=== PATIENT | female | born 1950 | race Caucasian/White ===

== ENCOUNTER 2020-11-15 19:12 | Inpatient (IN) | payer MEDICARE ==
[2020-11-15] MEDS ORDERED: ASPIRIN 81 MG PO STA (19:15)
[2020-11-15 19:34] LABS: Basophils # (A) 0.1 k/uL (0-0.2); Basophils % (A) 1 %; Eosinophils # (A) 0.3 k/uL (0-0.7); Eosinophils % (A) 3 %; HCT 40.8 % (34.0-46.0); HGB 13.7 gm/dL (11.4-16.0); Lymphocytes # (A) 2.1 k/uL (1.0-4.8); Lymphocytes % (A) 21 %; MCH 28.3 pg (25.0-35.0); MCHC 33.6 g/dL (31.0-37.0); MCV 84.3 fL (80.0-100.0); Mean Platelet Volume 9.1; Monocytes # (A) 0.5 k/uL (0-1.0); Monocytes % (A) 5 %; Neutrophils # (A) 6.9 k/uL (1.3-7.7); Neutrophils % (A) 69 %; Platelet Count 279 k/uL (150-450); RBC 4.84 m/uL (3.80-5.40); RDW 14.1 % (11.5-15.5)
[2020-11-15 19:43] LABS: ALT 34 U/L (4-34); AST 98 U/L (14-36); African American GFR (CKD) >90 (>60 ml/min/1.73 sqM); Albumin 5.2 g/dL (3.5-5.0); Alkaline Phosphatase 117 U/L (38-126); Anion Gap 12 mmol/L; Blood Urea Nitrogen 14 mg/dL (7-17); Calcium 10.2 mg/dL (8.4-10.2); Carbon Dioxide 23 mmol/L (22-30); Chloride 102 mmol/L (98-107); Glucose 196 mg/dL (74-99); Magnesium 1.6 mg/dL (1.6-2.3); Non-African American GFR(CKD) >90 (>60 ml/min/1.73 sqM); Sodium 137 mmol/L (137-145); Total Bilirubin 2.1 mg/dL (0.2-1.3); Total Protein 8.6 g/dL (6.3-8.2)
[2020-11-15 19:50] LABS: Potassium 5.9 mmol/L (3.5-5.1)
--- NOTE | 2020-11-15 19:55 | XR ---
EXAMINATION TYPE: XR chest 1V portable DATE OF EXAM: 11/15/2020 COMPARISON: Correlation made with CT report from 04/20/2016 HISTORY: Chest pain TECHNIQUE: Single frontal view of the chest is obtained. FINDINGS: There is no focal air space opacity, pleural effusion, or pneumothorax seen. The cardiac silhouette size is within normal limits. The osseous structures are intact. IMPRESSION: No acute process.
[2020-11-15] MEDS ORDERED: MAG HYDROX/AL HYDROX/SIMETH 30 ML CUP PO PRN (20:08)
[2020-11-15] MEDS ORDERED: ONDANSETRON 4 MG/2 ML VIAL IVP PRN (20:08)
[2020-11-15] MEDS ORDERED: TEMAZEPAM 15 MG CAP PO PRN (20:08)
[2020-11-15] MEDS ORDERED: NALOXONE 0.4 MG/ML 1 ML VIAL IV PRN (20:08)
[2020-11-15] MEDS ORDERED: MORPHINE SULFATE 4 MG/ML SYRINGE IV PRN (20:08)
--- NOTE | 2020-11-15 20:08 | ED ---
Chest Pain HPI - General Chief Complaint: Chest Pain Stated Complaint: Chest Pain Time Seen by Provider: 11/15/20 19:14 Source: patient, EMS Mode of arrival: EMS Limitations: no limitations - History of Present Illness Initial Comments: Patient complains of chest pain. She describes it is an elephant sitting on her chest. She has no shortness of breath. She has no palpitations. She has no nausea or vomiting. She has no diaphoresis. Her symptoms began 2 hours ago. She wasn't doing anything in the time. She has no swelling in the arms or legs. She has never had a heart attack. She has no stents in her heart. - Related Data Home Medications Medication Instructions Recorded Confirmed Linagliptin [Tradjenta] 5 mg PO DAILY 04/20/16 04/20/16 Losartan [Cozaar] 50 mg PO DAILY 04/20/16 04/20/16 Omeprazole [PriLOSEC] 20 mg PO AC-[id number] 04/20/16 04/20/16 metFORMIN HCL 1,000 mg PO BID 04/20/16 04/20/16 Allergies Allergy/AdvReac Type Severity Reaction Status Date / Time amlodipine besylate Allergy Nausea & Verified 04/20/16 01:50 [From Norvasc] Vomiting morphine AdvReac Unknown Verified 11/15/20 19:26 Review of Systems ROS Statement: Those systems with pertinent positive or pertinent negative responses have been documented in the HPI. ROS Other: All systems not noted in ROS Statement are negative. EKG Findings - EKG Comments: EKG Findings:: Twelve-lead EKG shows ventricular rate 61 bpm, normal NV interval and QRS complexes, no ST elevation or depression, interpreted by me as normal sinus rhythm. Past Medical History Past Medical History: Diabetes Mellitus, Hypertension Additional Past Medical History / Comment(s): toximoto 2019 History of Any Multi-Drug Resistant Organisms: None Reported Past Surgical History: Heart Catheterization Past Psychological History: No Psychological Hx Reported Smoking Status: Never smoker Past Alcohol Use History: Occasional Past Drug Use History: None Reported General Exam Limitations: no limitations Course Vital Signs 11/15/20 19:17 Temperature 97.7 F Pulse Rate 64 Respiratory 16 Rate Blood Pressure 127/75 O2 Sat by Pulse 97 Oximetry Chest Pain MDM - Core Measures AMI Core Measures Followed: Yes - MDM Patient complains of chest pain. I'm concern for ACS. I will consult cardiology. Patient will be admitted to the hospital. Disposition Clinical Impression: Chest pain Disposition: ADMITTED IP TO THIS HOSP Condition: Fair Referrals: Srinivasan Grimes DO [Primary Care Provider] - 1-2 days
[2020-11-15 20:20] LABS: INR 1.1 (<1.2); Partial Thromboplastin Time 24.6 sec (22.0-30.0); Prothrombin Time 11.2 sec (9.0-12.0)
[2020-11-15 20:29] LABS: Appearance,Urine Cloudy (Clear); Bacteria,Urine Rare /hpf; Bilirubin,Urine Negative (Negative); Blood,Urine Small (Negative); Calcium Oxalate Crystals,Urine Few /hpf; Color,Urine Yellow; Glucose,Urine (UA) Trace (Negative); Hyaline Casts,Urine 15 /lpf (0-2); Ketones,Urine Trace (Negative); Leukocyte Esterase,Urine Small (Negative); Mucus,Urine Moderate /hpf; Nitrite,Urine Negative (Negative); PH, Urine 5.5 (5.0-8.0); Protein,Urine 2+ (Negative); RBC,Urine 5 /hpf (0-5); Squamous Epithelial Cell,Urine 6 /hpf (0-4); WBC,Urine 5 /hpf (0-5)
[2020-11-15] MEDS ORDERED: metFORMIN 500 MG TAB PO SCH (21:00)
[2020-11-15] MEDS: HYDROcodone/APAP 5-325MG 1 EACH TAB PO PRN (21:44)
--- NOTE | 2020-11-15 23:05 | P.HPIM ---
History of Present Illness H&P Date: 11/15/20 Patient is a 70-year-old female with a PMH of hypertension and type II DM who presented to the emergency room with complaints of chest discomfort. The patient reports that she was in her usual state of health until about 5:30 PM tonight when she was sitting and talking to her on the phone when she suddenly developed a pressure-like substernal discomfort. The discomfort is non-radiating, 9 out of 10, with associated shortness of breath. She denied palpitations, nausea, vomiting, or diaphoresis. The patient's daughter subsequently activated EMS. In route to the hospital, EMS gave the patient sublingual nitroglycerin with which the patient felt as though she was going to faint but never lost consciousness. She reports some improvement in her pain with the nitroglycerin. At time of interview, she reports that her substernal pain has improved to a 5 out of 10 and she no longer has shortness of breath or any additional complaints. Denies tearing-like nature of the pain. The pain is nonpleuritic, with no alleviating or exacerbating features. Denied cough, fever, chills. Denied headaches, abdominal pain, or diarrhea. Denied leg pain or leg swelling. Denied recent travel. She underwent an extensive evaluation in the emergency room with an EKG showing normal sinus rhythm with LVH at 61 bpm along with T-wave inversion in lead V1 and T-wave flattening in lead V2. Chest x-ray was unremarkable. Laboratory evaluation was remarkable for a total bilirubin of 2.1, AST 98, and potassium 5.9 on a hemolyzed specimen. Review of Systems Pertinent positives and negatives as discussed in HPI, a complete review of systems was performed and all other systems are negative. Past Medical History Past Medical History: Diabetes Mellitus, Hypertension Additional Past Medical History / Comment(s): toximoto 2019 History of Any Multi-Drug Resistant Organisms: None Reported Past Surgical History: Heart Catheterization Past Psychological History: No Psychological Hx Reported Smoking Status: Never smoker Past Alcohol Use History: Occasional Past Drug Use History: None Reported Medications and Allergies Home Medications Medication Instructions Recorded Confirmed Type Linagliptin [Tradjenta] 5 mg PO DAILY 04/20/16 11/15/20 History Bimatoprost [Lumigan .01% Ophth 1 drop BOTH EYES HS 11/15/20 11/15/20 History Soln] Halobetasol Propionate [Ultravate] 1 applic TOPICAL DAILY PRN 11/15/20 11/15/20 History Losartan [Cozaar] 25 mg PO DAILY 11/15/20 11/15/20 History Omeprazole 40 mg PO DAILY 11/15/20 11/15/20 History carvediloL [Coreg] 3.125 mg PO BID 11/15/20 11/15/20 History metFORMIN HCL [Glucophage] 1,000 mg PO DAILY 11/15/20 11/15/20 History metFORMIN HCL [Glucophage] 1,500 mg PO HS 11/15/20 11/15/20 History Allergies Allergy/AdvReac Type Severity Reaction Status Date / Time amlodipine besylate AdvReac Cough Verified 11/15/20 20:36 [From [facility]] morphine AdvReac Passes out Verified 11/15/20 20:36 Physical Exam Vitals: Vital Signs Temp Pulse Resp BP Pulse Ox 11/15/20 19:17 97.7 F 64 16 127/75 97 Intake and Output 11/15/20 11/15/20 11/15/20 06:59 14:59 22:59 Other: Weight 90.265 kg General: non toxic, no distress, appears at stated age, overweight Derm: no unusual rashes/lesions no unusual ecchymoses, warm, dry Head: atraumatic, normocephalic, symmetric Eyes: EOMI, no lid lag, anicteric sclera, pupils equal round reactive to light ENT: Nose and ears atraumatic, no thrush, no pharyngeal erythema Neck: No thyromegaly, no cervical lymphadenopathy, trachea midline, supple Mouth: no lip lesion, mucus membranes moist Cardiovascular: S1S2 reg, no murmur, positive posterior tibial pulse bilateral, no edema, capillary refill less than 2 seconds, substernal tenderness to palpation with pain reproducible Lungs: CTA bilateral, no rhonchi, no rales , no accessory muscle use Abdominal: soft, nontender to palpation, no guarding, no appreciable organomegaly, normal bowel sounds Ext: no gross muscle atrophy, muscle strength 5 out of 5 in all 4 extremities grossly, no contractures Neuro: CN II-XI grossly intact, light touch intact all 4 extremities, finger to nose within normal limits Psych: Alert, oriented, appropriate affect Results CBC & Chem 7: 11/16/20 01:29 11/15/20 19:27 Labs: Abnormal Lab Results - Last 24 Hours (Table) 11/15/20 11/15/20 Range/Units 19:27 19:50 Potassium 5.9 H (3.5-5.1) mmol/L Glucose 196 H (74-99) mg/dL Total Bilirubin 2.1 H (0.2-1.3) mg/dL AST 98 H (14-36) U/L Total Protein 8.6 H (6.3-8.2) g/dL Albumin 5.2 H (3.5-5.0) g/dL Urine Appearance Cloudy H (Clear) Urine Protein 2+ H (Negative) Urine Glucose (UA) Trace H (Negative) Urine Ketones Trace H (Negative) Urine Blood Small H (Negative) Ur Leukocyte Esterase Small H (Negative) Ur Squamous Epith Cells 6 H (0-4) /hpf Calcium Oxalate Crystal Few H (None) /hpf Urine Bacteria Rare H (None) /hpf Hyaline Casts 15 H (0-2) /lpf Urine Mucus Moderate H (None) /hpf Assessment and Plan Plan: Chest pain with atypical features, rule out ACS -Cardiology consulted -Cardiac monitoring -Trend troponin -Continue aspirin Chronic conditions: Type II DM, hypertension -Continue home medications -Lispro insulin sliding scale blood glucose monitoring -Hold oral hypoglycemics -Check A1c DVT prophylaxis -Heparin subq The patient is admitted with an anticipated less than 2 midnight stay for evaluation of chest pain CODE STATUS: Full Code Discussed with: Patient Anticipated discharge date: in am Anticipated discharge place: home A total of 35 minutes was spent on the care of this complex patient more than 50% of the time was spent in counseling and care coordination.
[2020-11-15] MEDS ORDERED: HEPARIN SODIUM,PORCINE 5,000 UNIT/ML 1 ML VIAL IV ONE (23:29)
[2020-11-15] MEDS ORDERED: HEPARIN SODIUM,PORCINE 5,000 UNIT/ML 1 ML VIAL IV PRN (23:29)
[2020-11-15] MEDS ORDERED: HEPARIN SOD,PORK IN 0.45% NACL 25,000 UNIT in 0.45% NACL 1 250ML.BAG IV SCH (23:30)
[2020-11-16] MEDS ORDERED: HEPARIN SODIUM,PORCINE 5,000 UNIT/ML 1 ML VIAL SQ SCH
[2020-11-16 02:12] LABS: Basophils # (A) 0.1 k/uL (0-0.2); Basophils % (A) 1 %; Eosinophils # (A) 0.1 k/uL (0-0.7); Eosinophils % (A) 1 %; HCT 39.7 % (34.0-46.0); HGB 13.5 gm/dL (11.4-16.0); Lymphocytes # (A) 1.7 k/uL (1.0-4.8); Lymphocytes % (A) 16 %; MCH 28.8 pg (25.0-35.0); MCV 84.6 fL (80.0-100.0); Mean Platelet Volume 6.9; Monocytes # (A) 0.5 k/uL (0-1.0); Monocytes % (A) 4 %; Neutrophils # (A) 8.2 k/uL (1.3-7.7); Neutrophils % (A) 78 %; Platelet Count 184 k/uL (150-450); RBC 4.69 m/uL (3.80-5.40); WBC 10.5 k/uL (3.8-10.6)
[2020-11-16 02:13] LABS: INR 1.1 (<1.2); Partial Thromboplastin Time 51.8 sec (22.0-30.0); Prothrombin Time 11.6 sec (9.0-12.0)
[2020-11-16] MEDS: HYDROcodone/APAP 5-325MG 1 EACH TAB PO PRN (02:33)
[2020-11-16] MEDS ORDERED: CLOPIDOGREL 75 MG TAB PO STA (03:38)
[2020-11-16] MEDS ORDERED: PROCHLORPERAZINE INJ 10 MG/2 ML VIAL IVP STA (03:47)
[2020-11-16 05:21] LABS: Glucose,Whole Blood 204 mg/dL (75-99)
[2020-11-16] MEDS: INSULIN ASPART (NovoLOG) 100 UNIT/ML VIAL SQ SCH ×4 (05:25→20:33)
[2020-11-16] MEDS: PANTOPRAZOLE 40 MG TABLET PO SCH (05:25)
[2020-11-16 05:56] LABS: Basophils # (A) 0.1 k/uL (0-0.2); Basophils % (A) 1 %; Eosinophils # (A) 0.1 k/uL (0-0.7); Eosinophils % (A) 1 %; HCT 39.3 % (34.0-46.0); HGB 13.5 gm/dL (11.4-16.0); Lymphocytes # (A) 1.2 k/uL (1.0-4.8); Lymphocytes % (A) 13 %; MCH 29.1 pg (25.0-35.0); MCHC 34.5 g/dL (31.0-37.0); MCV 84.4 fL (80.0-100.0); Mean Platelet Volume 7.1; Monocytes # (A) 0.3 k/uL (0-1.0); Monocytes % (A) 4 %; Neutrophils # (A) 7.1 k/uL (1.3-7.7); Neutrophils % (A) 80 %; Platelet Count 165 k/uL (150-450); RBC 4.65 m/uL (3.80-5.40); RDW 13.9 % (11.5-15.5); WBC 8.8 k/uL (3.8-10.6)
[2020-11-16 06:34] LABS: ALT 27 U/L (4-34); AST 65 U/L (14-36); African American GFR (CKD) >90 (>60 ml/min/1.73 sqM); Albumin/Globulin Ratio 1.5; Alkaline Phosphatase 110 U/L (38-126); Anion Gap 8 mmol/L; Blood Urea Nitrogen 12 mg/dL (7-17); Calcium 9.7 mg/dL (8.4-10.2); Carbon Dioxide 25 mmol/L (22-30); Chloride 101 mmol/L (98-107); Globulin 2.6 g/dL; Glucose 209 mg/dL (74-99); Non-African American GFR(CKD) >90 (>60 ml/min/1.73 sqM); Potassium 3.9 mmol/L (3.5-5.1); Sodium 134 mmol/L (137-145); Total Bilirubin 0.6 mg/dL (0.2-1.3); Total Protein 6.6 g/dL (6.3-8.2)
[2020-11-16 06:49] LABS: Glucose,Whole Blood 199 mg/dL (75-99)
[2020-11-16] MEDS ORDERED: ASPIRIN 81 MG PO STA (06:58)
[2020-11-16] MEDS ORDERED: SODIUM CHLORIDE 0.9% 1,000 ML IV SCH ×2 (07:00→08:45)
[2020-11-16] MEDS ORDERED: METOPROLOL TARTRATE 25 MG TAB PO STA (07:00)
[2020-11-16] MEDS ORDERED: SODIUM CHLORIDE 0.9% 1,000 ML in EMPTY BAG 1 BAG IV ONE (07:07)
[2020-11-16] MEDS ORDERED: ATORVASTATIN 80 MG TAB PO STA (07:07)
[2020-11-16] MEDS ORDERED: ASPIRIN 325 MG TAB PO STA (07:07)
[2020-11-16] MEDS ORDERED: NITROGLYCERIN SL TABS 0.4 MG TAB SUBLINGUAL PRN (07:07)
[2020-11-16] MEDS ORDERED: IV FLUID CONTINUATION 1,000 ML IV ONE (07:25)
[2020-11-16] MEDS ORDERED: VERAPAMIL 2.5 MG/ML 2 ML AMP ONE (07:31)
[2020-11-16] MEDS ORDERED: LIDOCAINE 1% INJ 10MG/ML (20 ML MDV) ONE (07:31)
[2020-11-16] MEDS: MIDAZOLAM 2 MG/2 ML VIAL IV ONE ×2 (07:33→07:48)
[2020-11-16] MEDS ORDERED: HEPARIN SODIUM 1,000 UN/ML (10ML VL) ONE (07:33)
[2020-11-16] MEDS ORDERED: LIDOCAINE 1% INJ 10MG/ML (20 ML MDV) SQ ONE (07:34)
[2020-11-16] MEDS: VERAPAMIL SYRINGE (5 MG/10 ML) INTRAARTER ONE ×2 (07:36→07:52)
[2020-11-16] MEDS ORDERED: fentaNYL (PF) 50 MCG/ML 2 ML AMP ONE (07:39)
[2020-11-16] MEDS ORDERED: IOPAMIDOL-370 100ML BTL INJ ONE (07:53)
--- NOTE | 2020-11-16 08:28 | CONS ---
CONSULTATION This is a 70-year-old lady, a patient who has a primary health care in [facility] and cardiology care at [facility]. She came into the hospital because at 5:30 while she was at home at her daughter's home talking to her daughter and she developed chest pain. After arrival, she had mild ST-segment abnormality in the precordial leads. She also had normal troponins. Subsequently, she had more pain and the troponin went up to 3.6. She is here in the ICU after I requested a transfer to ICU from the ER. This lady actually was in the emergency room and I got a phone call about 3:30 or 4 o'clock that she was having some chest discomfort. The troponin had gone up to 3.4, and I recommended that we transfer her to the ICU with beta blockers and also sublingual nitroglycerin. This morning she is more comfortable, resting, but troponin is high. EKG revealed a sinus mechanism with the ST depression in leads V4 to V6. Her BUN and creatinine are normal. She is more comfortable. She does have a history of type 2 diabetes on oral agents, hypertension, and hyperlipidemia. She has had a stressful situation 2 years ago and had what seems to be a stress cardiomyopathy by cardiac cath according to the patient, the details were not verified. At the time of my evaluation, she is resting comfortably without symptoms. PAST MEDICAL HISTORY: 1. Type 2 diabetes. 2. Hypertension. 3. Hyperlipidemia. 4. History of stress cardiomyopathy 2 years ago. MEDICATIONS: Medication at home include Coreg, losartan, Tradjenta, metformin and Livalo for her cholesterol. ALLERGIES: She is allergic to MORPHINE and also there is some questionable allergy to AMLODIPINE as well. PHYSICAL EXAMINATION: On examination, blood pressure is 150/64, pulse rate is about 88. HEENT: Unremarkable. Fundus was not examined by me. NECK: Supple. No JVD. No carotid bruit. Heart exam reveals S1, S2 heard normally. No rub, murmur or gallop. Lungs are clear. Abdomen is soft, nontender. Lower extremities reveal normal pulses. No edema. Central nervous system is normal. EKG revealed sinus mechanism with precordial ST depression in leads V4 to V6. IMPRESSION: 1. Acute non-ST elevation myocardial infarction with EKG changes and troponin elevation. 2. History of stress cardiomyopathy. 3. Type 2 diabetes. 4. Hypertension. 5. Hyperlipidemia. RECOMMENDATIONS: I am recommending coronary angiography, based on findings intervention. The rationale, risks, benefits, options were explained. Patient understands all details and wishes to proceed with the procedure. MMODL / IJN: [id number] /
[2020-11-16] MEDS ORDERED: ASPIRIN 325 MG TAB PO SCH (09:00)
[2020-11-16] MEDS ORDERED: LINAGLIPTIN 5 MG TABLET PO SCH (09:00)
[2020-11-16] MEDS ORDERED: LOSARTAN 50 MG TAB PO SCH (09:00)
[2020-11-16] MEDS: LOSARTAN 50 MG TAB PO SCH (09:15)
[2020-11-16] MEDS: LINAGLIPTIN 5 MG TABLET PO SCH (09:16)
--- NOTE | 2020-11-16 09:20 | CC ---
CARDIAC CATHETERIZATION REPORT DATE OF SERVICE: 11/16/2020 PROCEDURE: Left heart catheterization and coronary angiography. PERFORMED BY: Dr. Kristyn Isaac. Moderate conscious sedation time was 22 minutes. Patient was administered Versed. Oxygen saturation, hemodynamics and EKG were monitored closely. CLINICAL INFORMATION: Mrs. Oanh Ivan is a 70-year-old lady with a history of type 2 diabetes, hypertension, hyperlipidemia, and 2 years ago had an episode of stress cardiomyopathy. She presented to the hospital last night with chest pain, had troponin elevation up to 3.4 with EKG changes. After stabilizing her, I advised coronary angiography after due discussion regarding risks, benefits, and options. PROCEDURE NOTE: Under local anesthesia and strict aseptic precautions, a 6-Welsh introducer was placed in the right radial artery. Using a JL3.5 and JR4 catheters, I performed coronary angiography and the same right catheter was used to check LV pressures. LV gram was not performed. The sheath was taken out and TR band applied as per protocol. The saturation of the fingers of the right hand was 95%. The patient was on heparin until about 45 minutes before the procedure and therefore I did not give heparin during the procedure. CARDIAC CATHETERIZATION FINDINGS: The left ventricular end-diastolic pressure was 24 mmHg without any gradient across the aortic valve. CORONARY ANGIOGRAPHY FINDINGS: RIGHT CORONARY ARTERY: This is a large dominant vessel, tortuous and distally gives off a small PLV, large PDA and supplies a sizable amount of myocardium. The PDA in its midportion has about a 40% to 45% blockage best seen in the HINES projection. The midportion of the PDA has about a 45% blockage. LEFT MAIN CORONARY ARTERY: This is a short patent disease-free vessel that bifurcates into LAD and circumflex. LEFT ANTERIOR DESCENDING CORONARY ARTERY: Good caliber vessel extends along the anterior wall, gives off a small diagonal proximally and a large diagonal in the midportion. After the diagonal, it gives off septal branch and after the septal branch, there is an area of haziness, but the stenosis is no more than 35% and there is excellent FLAVIA-3 flow. There is a 35% mid LAD narrowing noted, which I do not believe is a significant or the culprit lesion. The flow is brisk. LEFT POSTERIOR CIRCUMFLEX CORONARY ARTERY: Technically nondominant, but large caliber, large distribution vessel that gives off a large obtuse marginal proximally and continues distally. The posterolateral branch gives off an AV groove branch. The circumflex has only minor irregularities. No significant disease. This is a large caliber system and a large distribution system. LEFT VENTRICULOGRAM: Left ventriculogram was not performed. FINAL IMPRESSION: This patient has elevated filling pressures, no gradient across the aortic valve. She has a right dominant system with a 45% mid PDA lesion of the right coronary artery branch. Left main and circumflex which is nondominant but good distribution is free of significant disease. Left main has no significant disease. Left anterior descending coronary artery in the midportion has a 35% narrowing after the diagonal branch. The rest of the LAD is free of significant disease. Left ventriculogram was not performed. RECOMMENDATIONS: Findings were discussed with the patient as well as her . I am recommending continued medical therapy with losartan, beta josh, subcu heparin, aspirin and Plavix. I will obtain an echocardiogram today. I am assuming that this may be a stress cardiomyopathy as well. I explained this to the patient and her . I expect she will be discharged in next 48 hours if she remains stable. MMODL / IJN: [id number] /
--- NOTE | 2020-11-16 09:37 | P.PN ---
Subjective Progress Note Date: 11/16/20 Principal diagnosis: Non-ST elevation AK Patient is doing well today. She underwent left heart catheterization through right wrist approach this morning showing no significant coronary artery disease. Patient denies any chest pain. She reported having a lot of family stress recently with her daughter that she did not go into specific details. Objective - Vital Signs Vital signs: Vital Signs Temp 98.2 F 11/16/20 05:00 Pulse 83 11/16/20 07:00 Resp 20 11/16/20 07:00 BP 164/94 11/16/20 07:00 Pulse Ox 95 11/16/20 07:00 Intake & Output 11/15/20 11/16/20 11/16/20 18:59 06:59 18:59 Intake Total 65.697 108.003 Output Total 700 300 Balance -634.303 -191.997 Weight 93.8 kg Intake: IV 100 Intake, IV Titration 65.697 8.003 Amount Heparin Sod,Pork in 0.45% 65.697 8.003 NaCl 25,000 unit In 0.45 % NaCl 1 250ml.bag @ 11 UNITS/KG/HR 9.929 mls/hr IV .Q24H RANDY Rx#: [id number] Output: Urine 700 300 Other: # Voids 1 - Exam General: The patient is awake and alert, in no distress Eye: there is normal conjunctiva bilaterally. Neck: The neck is supple, there is no JVD. Cardiovascular: Normal S1-S2, no S3-S4, no murmurs. Respiratory: Lungs clear to auscultation bilaterally Gastrointestinal: Abdomen is soft, nontender Musculoskeletal: There is no pedal edema. Neurological:. Speech is normal. Skin: Skin is warm and dry - Labs CBC & Chem 7: 11/16/20 05:19 11/16/20 05:19 Labs: Abnormal Lab Results - Last 24 Hours (Table) 11/15/20 11/15/20 11/15/20 Range/Units 19:27 19:50 22:23 Neutrophils # (1.3-7.7) k/uL APTT (22.0-30.0) sec Sodium (137-145) mmol/L Potassium 5.9 H (3.5-5.1) mmol/L Glucose 196 H (74-99) mg/dL POC Glucose (mg/dL) (75-99) mg/dL Total Bilirubin 2.1 H (0.2-1.3) mg/dL AST 98 H (14-36) U/L Troponin I 0.752 H* (0.000-0.034) ng/mL Total Protein 8.6 H (6.3-8.2) g/dL Albumin 5.2 H (3.5-5.0) g/dL Urine Appearance Cloudy H (Clear) Urine Protein 2+ H (Negative) Urine Glucose (UA) Trace H (Negative) Urine Ketones Trace H (Negative) Urine Blood Small H (Negative) Ur Leukocyte Esterase Small H (Negative) Ur Squamous Epith Cells 6 H (0-4) /hpf Calcium Oxalate Crystal Few H (None) /hpf Urine Bacteria Rare H (None) /hpf Hyaline Casts 15 H (0-2) /lpf Urine Mucus Moderate H (None) /hpf 11/16/20 11/16/20 11/16/20 Range/Units 01:29 01:29 01:29 Neutrophils # 8.2 H (1.3-7.7) k/uL APTT 51.8 H (22.0-30.0) sec Sodium (137-145) mmol/L Potassium (3.5-5.1) mmol/L Glucose (74-99) mg/dL POC Glucose (mg/dL) (75-99) mg/dL Total Bilirubin (0.2-1.3) mg/dL AST (14-36) U/L Troponin I 3.490 H* (0.000-0.034) ng/mL Total Protein (6.3-8.2) g/dL Albumin (3.5-5.0) g/dL Urine Appearance (Clear) Urine Protein (Negative) Urine Glucose (UA) (Negative) Urine Ketones (Negative) Urine Blood (Negative) Ur Leukocyte Esterase (Negative) Ur Squamous Epith Cells (0-4) /hpf Calcium Oxalate Crystal (None) /hpf Urine Bacteria (None) /hpf Hyaline Casts (0-2) /lpf Urine Mucus (None) /hpf 11/16/20 11/16/20 11/16/20 Range/Units 05:19 05:19 05:20 Neutrophils # (1.3-7.7) k/uL APTT 33.6 H (22.0-30.0) sec Sodium 134 L (137-145) mmol/L Potassium (3.5-5.1) mmol/L Glucose 209 H (74-99) mg/dL POC Glucose (mg/dL) 204 H (75-99) mg/dL Total Bilirubin (0.2-1.3) mg/dL AST 65 H (14-36) U/L Troponin I (0.000-0.034) ng/mL Total Protein (6.3-8.2) g/dL Albumin (3.5-5.0) g/dL Urine Appearance (Clear) Urine Protein (Negative) Urine Glucose (UA) (Negative) Urine Ketones (Negative) Urine Blood (Negative) Ur Leukocyte Esterase (Negative) Ur Squamous Epith Cells (0-4) /hpf Calcium Oxalate Crystal (None) /hpf Urine Bacteria (None) /hpf Hyaline Casts (0-2) /lpf Urine Mucus (None) /hpf 11/16/20 Range/Units 06:47 Neutrophils # (1.3-7.7) k/uL APTT (22.0-30.0) sec Sodium (137-145) mmol/L Potassium (3.5-5.1) mmol/L Glucose (74-99) mg/dL POC Glucose (mg/dL) 199 H (75-99) mg/dL Total Bilirubin (0.2-1.3) mg/dL AST (14-36) U/L Troponin I (0.000-0.034) ng/mL Total Protein (6.3-8.2) g/dL Albumin (3.5-5.0) g/dL Urine Appearance (Clear) Urine Protein (Negative) Urine Glucose (UA) (Negative) Urine Ketones (Negative) Urine Blood (Negative) Ur Leukocyte Esterase (Negative) Ur Squamous Epith Cells (0-4) /hpf Calcium Oxalate Crystal (None) /hpf Urine Bacteria (None) /hpf Hyaline Casts (0-2) /lpf Urine Mucus (None) /hpf Assessment and Plan Assessment: This is a 70-year-old female with past medical history noted below significant for essential hypertension and type 2 diabetes who presented to the emergency room with chest discomfort and pain. Patient was evaluated in the ER and admitt ed to the hospital for further management of her medical problems noted below. 1. Non-ST elevation AK: Seen and evaluated by cardiology. Started on IV heparin drip and optimal medical treatment. Underwent left heart catheterization showing no significant coronary artery disease. Recommendation to continue aggressive medical management. Echocardiogram pending 2. Essential hypertension: Blood pressure not well controlled. We will continue current regimen and monitor blood pressure closely 3. Hyperlipidemia started on Lipitor. Lipid panel pending. 4. Type 2 diabetes: Hold oral agents and continue sliding scale insulin Today, I reviewed her medication list and lab work results. Continue IV fluid hydration with normal saline at 75 mL per hour. Repeat lab work in the morning. Appreciate cardiology recommendations. Dual antiplatelet therapy with aspirin and Plavix.
--- NOTE | 2020-11-16 11:00 | ECHOF ---
Referral Reason:NSTEMI MEASUREMENTS -------- HEIGHT: 152.4 cm WEIGHT: 93.4 kg BP: RVIDd: 2.7 cm (< 3.3) IVSd: 1.1 cm (0.6 - 1.1) LVIDd: 3.8 cm (3.9 - 5.3) LVPWd: 1.2 cm (0.6 - 1.1) IVSs: 1.4 cm LVIDs: 2.8 cm LVPWs: 1.4 cm LAESV Index (A-L): 24.86 ml/m Ao Diam: 3.1 cm (2.0 - 3.7) AV Cusp: 1.7 cm (1.5 - 2.6) LA Diam: 4.1 cm (2.7 - 3.8) MV EXCURSION: 18.048 mm (> 18.000) MV EF SLOPE: 99 mm/s (70 - 150) EPSS: 0.4 cm MV E Stanley: 0.44 m/s MV DecT: 268 ms MV A Stanley: 0.77 m/s MV E/A Ratio: 0.58 RAP: 5.00 mmHg RVSP: 26.63 mmHg FINDINGS -------- Sinus rhythm. This was a technically adequate study. The left ventricular size is normal. There is mild concentric left ventricular hypertrophy. Overa ll left ventricular systolic function is moderate-severely impaired with, an EF between 30 - 35 %. Mid anterior LV wall motion is hypokinetic. Apical anterior LV wall motion is hypokinetic. Apic al lateral LV wall motion is hypokinetic. Apical inferior LV wall motion is hypokinetic. Apical septum LV wall motion is hypokinetic. [place]. The right ventricle is normal in size. Normal LA size by volume 22+/-6 ml/m2. The right atrial size is normal. The aortic valve is trileaflet, and appears structurally normal. No aortic stenosis or regurgitation. The mitral valve is normal. Mild mitral regurgitation is present. The tricuspid valve appears structurally normal. Mild tricuspid regurgitation present. Right vent ricular systolic pressure is normal at < 35 mmHg. There is no pulmonic regurgitation present. The aortic root size is normal. There is no pericardial effusion. CONCLUSIONS -------- 1. Overall left ventricular systolic function is moderate-severely impaired with, an EF between 30 - 35 %. 2. Mid anterior LV wall motion is hypokinetic. 3. Apical anterior LV wall motion is hypokinetic. 4. Apical lateral LV wall motion is hypokinetic. 5. Apical inferior LV wall motion is hypokinetic. 6. Apical septum LV wall motion is hypokinetic. 7. [place]. 8. Normal LA size by volume 22+/-6 ml/m2. 9. The aortic valve is trileaflet, and appears structurally normal. No aortic stenosis or regurgitati on. 10. Mild mitral regurgitation is present. 11. Mild tricuspid regurgitation present. 12. There is no pericardial effusion. DATABASE ADMINISTRATOR: Mariann Garrido RDCS
[2020-11-16 12:17] LABS: Glucose,Whole Blood 201 mg/dL (75-99)
[2020-11-16 16:38] LABS: Glucose,Whole Blood 161 mg/dL (75-99)
[2020-11-16] MEDS: HEPARIN SODIUM,PORCINE 5,000 UNIT/ML 1 ML VIAL SQ SCH ×2 (16:44→23:05)
[2020-11-16] MEDS: METOPROLOL TARTRATE 25 MG TAB PO SCH ×2 (16:44→20:33)
[2020-11-16 20:19] LABS: Glucose,Whole Blood 174 mg/dL (75-99)
[2020-11-16] MEDS ORDERED: METOPROLOL TARTRATE 25 MG TAB PO SCH (21:00)
[2020-11-16 23:36] VITALS: RESP 16
[2020-11-17 06:14] LABS: Glucose,Whole Blood 188 mg/dL (75-99)
[2020-11-17] MEDS: INSULIN ASPART (NovoLOG) 100 UNIT/ML VIAL SQ SCH (06:22)
[2020-11-17] MEDS: PANTOPRAZOLE 40 MG TABLET PO SCH (06:23)
[2020-11-17 07:19] LABS: Basophils # (A) 0.1 k/uL (0-0.2); Basophils % (A) 1 %; Eosinophils # (A) 0.1 k/uL (0-0.7); Eosinophils % (A) 2 %; HCT 41.8 % (34.0-46.0); Lymphocytes # (A) 0.9 k/uL (1.0-4.8); Lymphocytes % (A) 15 %; MCH 28.3 pg (25.0-35.0); MCHC 33.5 g/dL (31.0-37.0); MCV 84.3 fL (80.0-100.0); Mean Platelet Volume 6.9; Monocytes # (A) 0.3 k/uL (0-1.0); Monocytes % (A) 5 %; Neutrophils # (A) 4.9 k/uL (1.3-7.7); Neutrophils % (A) 77 %; Platelet Count 168 k/uL (150-450); RBC 4.96 m/uL (3.80-5.40); WBC 6.4 k/uL (3.8-10.6)
[2020-11-17 07:32] LABS: African American GFR (CKD) >90 (>60 ml/min/1.73 sqM); Anion Gap 9 mmol/L; Blood Urea Nitrogen 12 mg/dL (7-17); Calcium 10.2 mg/dL (8.4-10.2); Carbon Dioxide 25 mmol/L (22-30); Chloride 104 mmol/L (98-107); Cholesterol 157 mg/dL (<200); Glucose 175 mg/dL (74-99); HDL Cholesterol 38 mg/dL (40-60); LDL Cholesterol,Calculated 72 mg/dL (0-99); Magnesium 1.5 mg/dL (1.6-2.3); Non-African American GFR(CKD) >90 (>60 ml/min/1.73 sqM); Sodium 138 mmol/L (137-145); Triglycerides 234 mg/dL (<150)
[2020-11-17] MEDS ORDERED: CLOPIDOGREL 75 MG TAB PO SCH (09:00)
[2020-11-17] MEDS ORDERED: ATORVASTATIN 80 MG TAB PO SCH (09:00)
[2020-11-17] MEDS ORDERED: ASPIRIN 325 MG TAB PO SCH (09:00)
[2020-11-17] MEDS ORDERED: ATORVASTATIN 40 MG TAB PO SCH (09:00)
[2020-11-17] MEDS: HEPARIN SODIUM,PORCINE 5,000 UNIT/ML 1 ML VIAL SQ SCH (10:15)
[2020-11-17] MEDS: LOSARTAN 50 MG TAB PO SCH (10:15)
[2020-11-17] MEDS: METOPROLOL TARTRATE 25 MG TAB PO SCH (10:16)
[2020-11-17] MEDS: LINAGLIPTIN 5 MG TABLET PO SCH (10:16)
[2020-11-17 11:00] VITALS: BP 133/86; PULSE 96; TEMP 98.4
--- NOTE | 2020-11-17 11:36 | P.PN ---
Subjective Progress Note Date: 11/17/20 This is a 70-year-old female was admitted to the hospital with chest pain and abnormal troponin. Patient had a cardiac catheterization and was found not to have any significant obstructive disease. Echo Cardigan showed anterolateral hypokinesia consistent with apical ballooning syndrome. Ejection fraction is 35%. Patient had similar episode in the past. Apparently there is family issue resulting in stress. Today patient is stable, complains of any chest pain or shortness of breath. Lungs are clear. Heart is regular. Patient is going to be discharged home and will have follow-up with her own web production designer. If she wants, patient could be seen by Dr. CHRISTOPHER Isaac as an outpatient. A she may also benefit from anxiolytic therapy Objective - Vital Signs Vital signs: Vital Signs Temp 98.4 F 11/17/20 07:50 Pulse 96 11/17/20 07:50 Resp 16 11/17/20 07:50 BP 133/86 11/17/20 07:50 Pulse Ox 96 11/17/20 07:50 Intake & Output 11/16/20 11/17/20 11/17/20 18:59 06:59 18:59 Intake Total 708.003 75 240 Output Total 300 Balance 408.003 75 240 Weight 93.7 kg Intake: IV 700 75 Sodium Chloride 0.9% 1, 600 75 000 ml @ 75 mls/hr IV . [id number] RANDY Rx#:[id number] Intake, IV Titration 8.003 Amount Heparin Sod,Pork in 0.45% 8.003 NaCl 25,000 unit In 0.45 % NaCl 1 250ml.bag @ 11 UNITS/KG/HR 9.929 mls/hr IV .Q24H RANDY Rx#: [id number] Oral 240 Output: Urine 300 Other: Voiding Method Toilet Toilet Toilet # Voids 4 1 - Exam GENERAL EXAM: Patient is alert and oriented and doesn't appear to be in any acute distress HEENT: Normocephalic. Normal reaction of pupils, equal size, normal range of extraocular motion. No erythema or exudates in the throat. NECK: No masses, no nuchal rigidity. CHEST: No chest wall deformity. LUNGS: Equal air entry with no crackles or wheeze. HEART: S1 and S2 normal with no audible mumurs or gallops. Regular rhythm, femorals equal on both sides.. ABDOMEN: No hepatosplenomegaly, normal bowel sounds, no guarding or rigidity. SKIN: No rashes CENTRAL NERVOUS SYSTEM: No focal deficits. EXTREMITIES: No cyanosis, clubbing or edema. - Labs CBC & Chem 7: 11/17/20 06:45 11/17/20 06:45 Labs: Abnormal Lab Results - Last 24 Hours (Table) 11/16/20 11/16/20 11/16/20 Range/Units 05:19 12:15 16:36 Lymphocytes # (1.0-4.8) k/uL Glucose (74-99) mg/dL POC Glucose (mg/dL) 201 H 161 H (75-99) mg/dL Hemoglobin A1c 7.2 H (4.0-6.0) % Magnesium (1.6-2.3) mg/dL Triglycerides (<150) mg/dL HDL Cholesterol (40-60) mg/dL 11/16/20 11/17/20 11/17/20 Range/Units 20:18 06:13 06:45 Lymphocytes # 0.9 L (1.0-4.8) k/uL Glucose (74-99) mg/dL POC Glucose (mg/dL) 174 H 188 H (75-99) mg/dL Hemoglobin A1c (4.0-6.0) % Magnesium (1.6-2.3) mg/dL Triglycerides (<150) mg/dL HDL Cholesterol (40-60) mg/dL 11/17/20 Range/Units 06:45 Lymphocytes # (1.0-4.8) k/uL Glucose 175 H (74-99) mg/dL POC Glucose (mg/dL) (75-99) mg/dL Hemoglobin A1c (4.0-6.0) % Magnesium 1.5 L (1.6-2.3) mg/dL Triglycerides 234 H (<150) mg/dL HDL Cholesterol 38 L (40-60) mg/dL Assessment and Plan (1) Apical ballooning syndrome Current Visit: Yes Status: Acute Code(s): I51.81 - TAKOTSUBO SYNDROME SNOMED Code(s): 519440092 (2) Essential hypertension Current Visit: Yes Status: Acute Code(s): I10 - ESSENTIAL (PRIMARY) HYPERTENSION SNOMED Code(s): 15724308 (3) Diabetes mellitus Current Visit: Yes Status: Acute Code(s): E11.9 - TYPE 2 DIABETES MELLITUS WITHOUT COMPLICATIONS SNOMED Code(s): 45991730 Plan: Continue current medical therapy. Possible discharge today. Follow-up as an outpatient with her own web production designer
[2020-11-17 12:19] LABS: Glucose,Whole Blood 180 mg/dL (75-99)
--- NOTE | 2020-12-27 18:16 | P.DS ---
Providers Date of admission: 11/15/20 20:09 Expected date of discharge: 11/17/20 Attending physician: Ramesh Tyson MD Consults: 11/15/20 20:09 Consult Physician Routine Consulting Provider: Isauro Navarro Consult Reason/Comments: chest pain Do you want consulting provider notified?: Yes Primary care physician: Srinivasan Berry [facility] Hospital Course: This is a 70-year-old female with past medical history noted below significant for essential hypertension and type 2 diabetes who presented to the emergency room with chest discomfort and pain. Patient was evaluated in the ER and admitt ed to the hospital for further management of her medical problems noted below. 1. Non-ST elevation MO: Seen and evaluated by cardiology. Started on IV heparin drip and optimal medical treatment. Underwent left heart catheterization showing no significant coronary artery disease. Recommendation to continue aggressive medical management. Echocardiogram showed diffuse wall motion hypokinesia with EF of 30-35%. 2. Essential hypertension: Blood pressure within acceptable range 3. Hyperlipidemia started on Lipitor. 4. Type 2 diabetes: Resume indications Patient will be discharged home in a stable condition. For further details about this hospitalization please refer to the electronic chart. Time spent on discharge > 30 minutes including counseling and coordination of care Patient Condition at Discharge: Fair Plan - Discharge Summary Discharge Rx Participant: Yes New Discharge Prescriptions: New Losartan [Cozaar] 50 mg PO DAILY #30 tab Aspirin EC [Ecotrin Low Dose] 81 mg PO DAILY #30 tablet. Atorvastatin [Lipitor] 40 mg PO DAILY #30 tab Metoprolol Tartrate [Lopressor] 50 mg PO BID #60 tab Spironolactone 25 mg PO DAILY #30 tablet ALPRAZolam [Xanax] 0.25 mg PO BID PRN 3 Days #6 tab PRN Reason: Anxiety Continue Linagliptin [Tradjenta] 5 mg PO DAILY metFORMIN HCL [Glucophage] 1,000 mg PO DAILY metFORMIN HCL [Glucophage] 1,500 mg PO HS Halobetasol Propionate [Ultravate] 1 applic TOPICAL DAILY PRN PRN Reason: eczema Bimatoprost [Lumigan .01% Ophth Soln] 1 drop BOTH EYES HS Omeprazole 40 mg PO DAILY Discontinued carvediloL [Coreg] 3.125 mg PO BID Losartan [Cozaar] 25 mg PO DAILY Discharge Medication List Linagliptin [Tradjenta] 5 mg PO DAILY 04/20/16 [History] Bimatoprost [Lumigan .01% Ophth Soln] 1 drop BOTH EYES HS 11/15/20 [History] Halobetasol Propionate [Ultravate] 1 applic TOPICAL DAILY PRN 11/15/20 [History] Omeprazole 40 mg PO DAILY 11/15/20 [History] metFORMIN HCL [Glucophage] 1,000 mg PO DAILY 11/15/20 [History] metFORMIN HCL [Glucophage] 1,500 mg PO HS 11/15/20 [History] ALPRAZolam [Xanax] 0.25 mg PO BID PRN 3 Days #6 tab 11/17/20 [Rx] Aspirin EC [Ecotrin Low Dose] 81 mg PO DAILY #30 tablet.dr 11/17/20 [Rx] Atorvastatin [Lipitor] 40 mg PO DAILY #30 tab 11/17/20 [Rx] Losartan [Cozaar] 50 mg PO DAILY #30 tab 11/17/20 [Rx] Metoprolol Tartrate [Lopressor] 50 mg PO BID #60 tab 11/17/20 [Rx] Spironolactone 25 mg PO DAILY #30 tablet 11/17/20 [Rx] Follow up Appointment(s)/Referral(s): Srinivasan Grimes DO [Primary Care Provider] - 1-2 days (Left message at office to call back with follow up appointment. ) Nonstaff,Physician [REFERRING] - 11/22/20 (Please keep already scheduled follow up appointment with your grain buyer. ) Patient Instructions/Handouts: *Surgery [facility] - After Heart Catheterization - Food Preparer Instructions, Heart Failure (DC), Acute Coronary Syndrome (DC), After Radial Heart Catheterization (GEN) Discharge Disposition: HOME SELF-CARE
== END 2020-11-17 12:31 | disposition home or self-care (01) | DRG 287 ==
LOC: EC 19:12 → 6NMEDSUR 20:09 → OBSVTOIN 20:09 → 6NMEDSUR 22:34 → 2SICU 11-16 03:48 → 3SCARD 11-16 22:20
PROVIDERS: ADMIT Internal Medicine; ATTEND Internal Medicine
PROC: 4A023N7 Measurement of Cardiac Sampling and Pressure, Left Heart, Percutaneous Approach (ICD-10-PCS; principal; 2020-11-16 10:05)
PROC: B2111ZZ Fluoroscopy of Multiple Coronary Arteries using Low Osmolar Contrast (ICD-10-PCS; principal; 2020-11-16 10:05)
DX: I51.81 Takotsubo syndrome (principal); E11.9 Type 2 diabetes mellitus without complications; E78.5 Hyperlipidemia, unspecified; I10 Essential (primary) hypertension; Z79.4 Long term (current) use of insulin; Z79.899 Other long term (current) drug therapy; Z88.5 Allergy status to narcotic agent; Z88.8 Allergy status to other drugs, medicaments and biological substances; Z79.82 Long term (current) use of aspirin; Z20.822 Contact with and (suspected) exposure to COVID-19
CPT/HCPCS: 36415; 71045; 80048; 80053; 80061; 81001; 83036; 83735; 83880; 84484; 85025; 85610; 85730; 87635; 93005; 93306; 93458; 96374; 99285

== ENCOUNTER 2022-04-13 13:33 | Emergency (ER) | payer MEDICARE ==
[2022-04-13 13:47] VITALS: BP 143/81; PULSE 75; RESP 20; TEMP 98.3
--- NOTE | 2022-04-13 14:09 | ED ---
General Adult HPI - General Chief complaint: Eye Problems Stated complaint: eye problem Time Seen by Provider: 04/13/22 13:50 Source: patient, RN notes reviewed, old records reviewed Mode of arrival: ambulatory Limitations: no limitations - History of Present Illness Initial comments: 72-year-old female presents with right thigh redness and slight irritation. Patient states her daughter's daughter noticed this. She denies associated pain. Denies specific injury. Denies vision changes. She is on aspirin daily no other anticoagulation. - Related Data Home Medications Medication Instructions Recorded Confirmed Linagliptin [Tradjenta] 5 mg PO DAILY 04/20/16 11/15/20 Bimatoprost [Lumigan 0.01% Ophth 1 drop BOTH EYES HS 11/15/20 11/15/20 Soln] Halobetasol Propionate [Ultravate 1 applic TOPICAL DAILY PRN 11/15/20 11/15/20 0.05%] Omeprazole 40 mg PO DAILY 11/15/20 11/15/20 metFORMIN HCL [Glucophage] 1,000 mg PO DAILY 11/15/20 11/15/20 metFORMIN HCL [Glucophage] 1,500 mg PO HS 11/15/20 11/15/20 Previous Rx's Medication Instructions Recorded ALPRAZolam [Xanax] 0.25 mg PO BID PRN 3 Days #6 tab 11/17/20 Aspirin EC [Ecotrin Low Dose] 81 mg PO DAILY #30 tablet.dr 11/17/20 Atorvastatin [Lipitor] 40 mg PO DAILY #30 tab 11/17/20 Losartan [Cozaar] 50 mg PO DAILY #30 tab 11/17/20 Metoprolol Tartrate [Lopressor] 50 mg PO BID #60 tab 11/17/20 Spironolactone 25 mg PO DAILY #30 tablet 11/17/20 Moxifloxacin [Vigamox 0.5%] 1 drop RIGHT EYE TID #3 ml 04/13/22 Allergies Allergy/AdvReac Type Severity Reaction Status Date / Time amlodipine besylate AdvReac Cough Verified 04/13/22 13:47 [From [facility]] morphine AdvReac Passes out Verified 04/13/22 13:47 Review of Systems ROS Statement: Those systems with pertinent positive or pertinent negative responses have been documented in the HPI. ROS Other: All systems not noted in ROS Statement are negative. Past Medical History Past Medical History: Diabetes Mellitus, Hypertension Additional Past Medical History / Comment(s): [employer] 2018 History of Any Multi-Drug Resistant Organisms: None Reported Past Surgical History: Heart Catheterization Past Anesthesia/Blood Transfusion Reactions: No Reported Reaction Past Psychological History: No Psychological Hx Reported Smoking Status: Never smoker Past Alcohol Use History: Occasional Past Drug Use History: None Reported - Past Family History Father Family Medical History: Cancer, Diabetes Mellitus Additional Family Medical History / Comment(s): Lymphoma Mother Family Medical History: Diabetes Mellitus General Exam Limitations: no limitations General appearance: alert, in no apparent distress Head exam: Present: atraumatic, normocephalic Eye exam: Present: normal appearance, PERRL, EOMI, other (Large subconjunctival hemorrhage and chemosis) ENT exam: Present: normal exam Neck exam: Present: normal inspection. Absent: tenderness, meningismus Respiratory exam: Present: normal lung sounds bilaterally. Absent: respiratory distress, wheezes Cardiovascular Exam: Present: regular rate, normal rhythm GI/Abdominal exam: Present: soft. Absent: distended, tenderness, guarding Extremities exam: Present: normal inspection, normal capillary refill. Absent: pedal edema Neurological exam: Present: alert, oriented X3, CN II-XII intact. Absent: motor sensory deficit Psychiatric exam: Present: normal affect, normal mood Skin exam: Present: warm, dry, intact. Absent: cyanosis, diaphoretic Course Vital Signs 04/13/22 13:43 Temperature 98.3 F Pulse Rate 75 Respiratory 20 Rate Blood Pressure 143/81 O2 Sat by Pulse 96 Oximetry Medical Decision Making - Medical Decision Making 72-year-old female presenting with hemorrhage to the right second conjunctiva. No specific injury. Normal visual acuity. No anticoagulation. Patient reassured, given ophthalmology follow-up. I did discuss case with Dr. Bennett, covering for ophthalmology due to the extensive hemorrhage and chemosis. He will evaluate the patient on Friday. He recommends Vigamox.Return parameters discussed. Disposition Clinical Impression: Subconjunctival hemorrhage Disposition: HOME SELF-CARE Condition: Good Instructions (If sedation given, give patient instructions): Eye Lubricant (Into the eye), Subconjunctival Hemorrhage (ED) Prescriptions: Moxifloxacin [Vigamox 0.5%] 1 drop RIGHT EYE TID #3 ml Is patient prescribed a controlled substance at d/c from ED?: No Referrals: Srinivasan Grimes DO [Primary Care Provider] - 1-2 days Reji Bennett MD [STAFF PHYSICIAN] - 1-2 days Time of Disposition: 14:09
== END 2022-04-13 15:01 | disposition home or self-care (01) ==
LOC: EC 13:33
DX: H11.31 Conjunctival hemorrhage, right eye (principal); Z88.6 Allergy status to analgesic agent; Z88.8 Allergy status to other drugs, medicaments and biological substances
CPT/HCPCS: 99283